=== PATIENT | female | born 1980 | race African-American/Black ===

== ENCOUNTER 2021-03-30 06:44 | Emergency (ER) | payer OTHER ==
[~2021-03-30] VITALS: Ht 165.1 cm; Wt 119.5 kg
[2021-03-30] MEDS ORDERED: LISINOPRIL2.5 MG PO (07:02)
[2021-03-30] MEDS ORDERED: METOPROL TAR25 MG PO (07:03)
[2021-03-30] MEDS ORDERED: WATER PILL PO (07:03)
[2021-03-30 11:10] VITALS: BP 149/71
== END 2021-03-30 11:10 | DRG 563 ==
LOC: ED 06:44
PROC: 2W3CX1Z Immobilization of Right Lower Arm using Splint (ICD-10-PCS; principal; 2021-03-30)
DX: S52.301A Unspecified fracture of shaft of right radius, initial encounter for closed fracture (principal); I10 Essential (primary) hypertension; V47.5XXA Car driver injured in collision with fixed or stationary object in traffic accident, initial encounter